=== PATIENT | male | born 1960 | race Two or more races ===

== ENCOUNTER → 2017-06-18 | Outpatient (REF) | payer BC ==
[2017-06-18 13:33] LABS: AMYLASE 65 U/L (25-115)
== END ==
LOC: M LAB REF 12:50
PROVIDERS: ATTEND Nurse Practitioner Adult Health
DX: R74.9 Abnormal serum enzyme level, unspecified (principal)

== ENCOUNTER → 2017-12-06 | Outpatient (CLI) | payer BC, OTHER | LOC: M LRY 11:19 | DX: S79.912A Unspecified injury of left hip, initial encounter (principal); S39.92XA Unspecified injury of lower back, initial encounter; M16.0 Bilateral primary osteoarthritis of hip; M51.36 Other intervertebral disc degeneration, lumbar region; X58.XXXA Exposure to other specified factors, initial encounter; Y92.9 Unspecified place or not applicable | CPT/HCPCS: 72110 ==

== ENCOUNTER → 2019-04-13 | Outpatient (CLI) | payer OTHER ==
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
== END ==
LOC: M PAIN 13:45
PROVIDERS: ATTEND Anesthesiology
DX: M79.18 Myalgia, other site (principal); M54.2 Cervicalgia; M54.5 Low back pain; G89.29 Other chronic pain; M25.571 Pain in right ankle and joints of right foot; M25.572 Pain in left ankle and joints of left foot; M47.816 Spondylosis without myelopathy or radiculopathy, lumbar region; E03.9 Hypothyroidism, unspecified; Z88.0 Allergy status to penicillin; Z79.82 Long term (current) use of aspirin; Z79.899 Other long term (current) drug therapy

== ENCOUNTER → 2020-03-09 | Outpatient (REF) | payer OTHER | LOC: M LAB REF 07:30 | PROVIDERS: ATTEND Dermatology | DX: L90.5 Scar conditions and fibrosis of skin (principal) ==

== ENCOUNTER → 2020-07-31 | Outpatient (REF) | payer OTHER | LOC: M LAB REF 14:33 | PROVIDERS: ATTEND Dermatology | DX: C44.519 Basal cell carcinoma of skin of other part of trunk (principal); D23.61 Other benign neoplasm of skin of right upper limb, including shoulder ==

== ENCOUNTER → 2020-08-10 | Outpatient (REF) | payer OTHER | LOC: M LAB REF 17:11 | PROVIDERS: ATTEND Dermatology | DX: C44.509 Unspecified malignant neoplasm of skin of other part of trunk (principal) ==

== ENCOUNTER → 2020-10-18 | Outpatient (REF) | payer OTHER ==
[2020-10-20 04:06] LABS: LDL DIRECT 150 mg/dL (0-99)
== END ==
LOC: M LAB REF 16:14
PROVIDERS: ATTEND Nurse Practitioner Adult Health
DX: E78.5 Hyperlipidemia, unspecified (principal)

== ENCOUNTER → 2021-06-10 | Outpatient (REF) | payer OTHER | LOC: M LAB REF 16:09 | PROVIDERS: ATTEND Nurse Practitioner Adult Health | DX: Z01.84 Encounter for antibody response examination (principal) ==

== ENCOUNTER → 2022-03-19 | Outpatient (REF) | payer OTHER, BC | LOC: M SFHCDERM 14:30 | PROVIDERS: ATTEND Physician Assistant | DX: L57.0 Actinic keratosis (principal) ==

== ENCOUNTER → 2023-08-21 | Outpatient (CLI) | payer BC, OTHER | LOC: M WUC 10:41 | PROVIDERS: ATTEND Nurse Practitioner Family | DX: R07.82 Intercostal pain (principal) ==

== ENCOUNTER → 2023-09-29 | Outpatient (REF) | payer BC, OTHER | LOC: M SFHCDERM 18:12 | PROVIDERS: ATTEND Physician Assistant | DX: C44.91 Basal cell carcinoma of skin, unspecified (principal) ==

== ENCOUNTER → 2024-02-22 | Outpatient (CLI) | payer BC, OTHER | LOC: M WUC 11:16 | PROVIDERS: ATTEND Student in an Organized Health Care Education/Training Program | DX: M79.631 Pain in right forearm (principal) ==

== ENCOUNTER → 2024-03-03 | Outpatient (CLI) | payer BC | LOC: M SOG 07:56 | PROVIDERS: ATTEND Physician Assistant | DX: Z53.9 Procedure and treatment not carried out, unspecified reason (principal) ==

== ENCOUNTER → 2024-03-23 | Outpatient (CLI) | payer BC | LOC: M SOG 07:52 | PROVIDERS: ATTEND Physician Assistant | DX: M79.641 Pain in right hand (principal); M19.041 Primary osteoarthritis, right hand ==

== ENCOUNTER → 2024-11-23 | Outpatient (REF) | payer OTHER | LOC: M SFHCDERM 09:07 | PROVIDERS: ATTEND Physician Assistant | DX: D04.39 Carcinoma in situ of skin of other parts of face (principal) ==

== ENCOUNTER → 2025-01-30 | Outpatient (REF) | payer BC | LOC: M LAB REF 14:24 | PROVIDERS: ATTEND Internal Medicine | DX: I10 Essential (primary) hypertension (principal); E78.5 Hyperlipidemia, unspecified ==